=== PATIENT | female | born 1990 | race Caucasian/White ===

== ENCOUNTER 2022-08-10 13:46 | Outpatient (CLI) | payer OTHER, SELFPAY ==
[2022-08-10 14:12] LABS: HCG Quant, Pregnancy 27 mIU/mL (1-3)
== END 2022-08-10 13:47 | disposition home or self-care (01) ==
LOC: LBO 13:46
PROVIDERS: PCP Nurse Practitioner Family; Visit Provider Advanced Practice Midwife
DX: Z32.01 Encounter for pregnancy test, result positive (principal)
CPT/HCPCS: 36415; 84702

== ENCOUNTER 2022-08-12 04:01 | Outpatient (CLI) | payer OTHER, SELFPAY ==
[2022-08-12 09:21] LABS: HCG Quant, Pregnancy 34 mIU/mL (1-3)
== END 2022-08-12 04:02 | disposition home or self-care (01) ==
LOC: LBO 04:01
PROVIDERS: Advanced Practice Midwife; PCP Nurse Practitioner Family; Visit Provider Advanced Practice Midwife
DX: Z32.01 Encounter for pregnancy test, result positive (principal)
CPT/HCPCS: 36415; 84702

== ENCOUNTER 2022-08-16 03:05 | Outpatient (CLI) | payer OTHER, SELFPAY ==
[2022-08-16 17:22] LABS: HCG Quant, Pregnancy 104 mIU/mL (1-3)
== END 2022-08-16 03:06 | disposition home or self-care (01) ==
LOC: LBO 03:05
PROVIDERS: PCP Nurse Practitioner Family; Visit Provider Advanced Practice Midwife
DX: O20.0 Threatened abortion (principal); Z32.01 Encounter for pregnancy test, result positive
CPT/HCPCS: 36415; 84702

== ENCOUNTER 2022-08-18 04:33 | Outpatient (CLI) | payer OTHER, SELFPAY ==
[2022-08-18 15:49] LABS: HCG Quant, Pregnancy 188 mIU/mL (1-3)
== END 2022-08-18 04:34 | disposition home or self-care (01) ==
PROVIDERS: PCP Nurse Practitioner Family; Visit Provider Obstetrics & Gynecology Gynecology
DX: O20.0 Threatened abortion (principal); Z32.01 Encounter for pregnancy test, result positive
CPT/HCPCS: 36415; 84702